=== PATIENT | male | born 1995 | race Hispanic/Latino ===

== ENCOUNTER 2018-11-18 17:04 | Emergency (ER) | payer BC ==
--- NOTE | 2018-11-18 17:24 | RAD ---
3 views left ankle. HISTORY: Left ankle pain for one week. AP, lateral and oblique views left ankle obtained. No evidence of fractures, subluxations or bony lesions seen. IMPRESSION: No evidence of acute left ankle fractures or bony lesions.
== END 2018-11-18 17:33 | disposition home or self-care (01) ==
LOC: ERS 17:04
DX: M25.572 Pain in left ankle and joints of left foot (principal); X50.1XXA Overexertion from prolonged static or awkward postures, initial encounter